=== PATIENT | male | born 2000 | race Two or more races ===

== ENCOUNTER 2020-01-07 11:17 | Emergency (ER) | payer OTHER ==
[2020-01-07 11:27] VITALS: BP 128/72; PULSE 64; TEMP 97.8; BMI 20.9
--- NOTE | 2020-01-07 11:44 | PDOC ---
History of Present Illness - General Chief Complaint: Ear Problem Stated Complaint: RT SIDE EAR PAIN Time Seen by Provider: 01/07/20 11:32 History Source: Patient - History of Present Illness Timing/Duration: reports: other Past History - Medical History Allergies/Adverse Reactions: Allergies Allergy/AdvReac Type Severity Reaction Status Date / Time No Known Allergies Allergy Verified 01/07/20 11:20 Home Medications: Ambulatory Orders Carbamide Peroxide 6.5% [Debrox -] 10 drop AD BID #1 bottle 01/07/20 - Psycho-Social/Smoking History Smoking History: Never smoked - Substance Abuse Hx (Audit-C & DAST Scrn) How often the patient has a drink containing alcohol: Never Score: In Men: 4 or > Positive; In Women: 3 or > Positive: 0 Screen Result (Pos requires Nsg. Audit-10AR): Negative In the last yr the pt used illegal drug/Rx for NonMed reason: No Score: Yes response is considered Positive: 0 Screen Result (Positive result requires Nsg. DAST-10): Negative Review of Systems - Review of Systems Constitutional: No: Chills, Fever HEENTM: Yes: Ear Pain. No: Throat Pain Respiratory: No: Cough *Physical Exam - Vital Signs Last Vital Signs Temp Pulse Resp BP Pulse Ox 97.8 F 64 16 128/72 100 01/07/20 11:22 01/07/20 11:22 01/07/20 11:22 01/07/20 11:22 01/07/20 11:22 - Physical Exam General Appearance: Yes: Appropriately Dressed. No: Apparent Distress HEENT: positive: Normal Voice, Other (cerumen impaction on the R, L ear wnl) Neck: positive: Supple Respiratory/Chest: negative: Respiratory Distress Integumentary: positive: Dry, Warm Neurologic: positive: Fully Oriented, Alert, Normal Mood/Affect Medical Decision Making - Medical Decision Making 01/07/20 11:41 19 yo M, no sig hx, here w/ R ear discomfort w/ decreased hearing x 2 days. No otorrhea, sore throat, f/c see exam Cerumen impaction Dc w/ debrox To return as needed Discharge - Discharge Information Problems reviewed: Yes Clinical Impression/Diagnosis: Impacted cerumen of right ear Condition: Good Disposition: HOME - Additional Discharge Information Prescriptions: Carbamide Peroxide 6.5% [Debrox -] 10 drop AD BID #1 bottle - Follow up/Referral - Patient Discharge Instructions Patient Printed Discharge Instructions: Amisha Michaelion - Post Discharge Activity
== END 2020-01-07 11:45 | disposition home or self-care (01) ==
LOC: JERFT 11:17
DX: H61.21 Impacted cerumen, right ear (principal)
CPT/HCPCS: 99283-25